=== PATIENT | male | born 1945 | race Native Hawaiian/Other Pacific Islander ===

== ENCOUNTER 2018-03-14 01:00 | Emergency (ER) | payer OTHER ==
[~2018-03-14] VITALS: Ht 172.7 cm; Wt 79.4 kg
[2018-03-14] MEDS ORDERED: LIPITOR40 MG PO (01:09)
[2018-03-14] MEDS ORDERED: RAMI10CA PO (01:09)
[2018-03-14 01:23] LABS: PLATELET COUNT 257 K/uL (142-355)
[2018-03-14 01:30] LABS: POTASSIUM 3.6 mmol/L (3.6-5.2); SODIUM 133 mmol/L (136-145)
[2018-03-14 04:04] VITALS: BP 124/54; TEMP 97.7
== END 2018-03-14 04:08 | disposition home or self-care (01) ==
LOC: ED 01:00
PROVIDERS: Emergency Medicine
DX: R07.89 Other chest pain (principal); R10.84 Generalized abdominal pain; I44.4 Left anterior fascicular block
CPT/HCPCS: 36415; 80053; 82550; 82553; 84484; 85027; 93005; 99283; J2270

== ENCOUNTER 2018-03-19 17:47 | Emergency (ER) | payer OTHER ==
[~2018-03-19] VITALS: Ht 172.7 cm; Wt 79.4 kg
[~2018-03-19 17:47] MED LIST: LIPITOR40 MG PO; RAMI10CA PO
[2018-03-19 20:25] VITALS: BP 129/60; TEMP 102
== END 2018-03-19 20:33 | disposition home or self-care (01) ==
LOC: ED 17:47
DX: K12.2 Cellulitis and abscess of mouth (principal); R50.9 Fever, unspecified; R00.0 Tachycardia, unspecified
CPT/HCPCS: 87651; 93005; 99283

== ENCOUNTER 2018-12-21 12:16 | Outpatient (CLI) | payer OTHER ==
[2018-12-21 12:36] LABS: PLATELET COUNT 211 K/uL (142-355)
[2018-12-21 12:58] LABS: POTASSIUM 4.7 mmol/L (3.6-5.2)
== END 2018-12-21 19:53 | disposition home or self-care (01) ==
LOC: LABW 12:16
PROVIDERS: Physician Assistant
DX: I10 Essential (primary) hypertension (principal); E78.49 Other hyperlipidemia; R41.3 Other amnesia
CPT/HCPCS: 36415; 80053; 80061; 82306; 82607; 84154; 84443; 85027

== ENCOUNTER 2019-01-01 20:57 | Emergency (ER) | payer OTHER ==
[~2019-01-01] VITALS: Ht 172.7 cm; Wt 79.4 kg
[2019-01-01] MEDS ORDERED: ASPIRIN ADULT L81 MG PO (21:21)
[2019-01-01] MEDS ORDERED: B121000 MCG PO (21:22)
[2019-01-01] MEDS ORDERED: D31000 UNIT PO (21:22)
[2019-01-01] MEDS ORDERED: CENTRUM1 TAB PO (21:22)
[2019-01-01 21:53] LABS: PLATELET COUNT 224 K/uL (142-355)
[2019-01-01 22:01] LABS: SODIUM 140 mmol/L (136-145)
[2019-01-02 02:49] VITALS: BP 154/78; TEMP 97.6
== END 2019-01-02 02:50 | disposition home or self-care (01) ==
LOC: ED 20:57
PROVIDERS: Emergency Medicine
DX: R07.89 Other chest pain (principal); R41.82 Altered mental status, unspecified; E86.0 Dehydration; R10.84 Generalized abdominal pain; I44.7 Left bundle-branch block, unspecified; R00.1 Bradycardia, unspecified
CPT/HCPCS: 36415; 80053; 81000; 82150; 82550; 82553; 83690; 84484; 85027; 93005; 96360; 99284; Q9963

== ENCOUNTER 2019-07-23 15:32 | Outpatient (CLI) | payer OTHER ==
[~2019-07-23 15:32] MED LIST changes: +ASPIRIN ADULT L81 MG PO; +B121000 MCG PO; +CENTRUM1 TAB PO; +D31000 UNIT PO
[2019-07-23 16:01] LABS: PLATELET COUNT 222 K/uL (142-355)
[2019-07-23 16:10] LABS: POTASSIUM 4.5 mmol/L (3.6-5.2)
== END 2019-07-23 20:08 | disposition home or self-care (01) ==
LOC: LAB 15:32
PROVIDERS: Internal Medicine
DX: I10 Essential (primary) hypertension (principal); E78.5 Hyperlipidemia, unspecified
CPT/HCPCS: 80053; 80061; 81000; 84439; 84443; 85027

== ENCOUNTER 2019-07-25 10:42 | Outpatient (CLI) | payer OTHER | END 2019-07-25 19:22 | disposition home or self-care (01) | LOC: CT 10:42 → US 10:42 → CT 11:00 | DX: G45.9 Transient cerebral ischemic attack, unspecified (principal) ==

== ENCOUNTER 2019-08-13 14:08 | Outpatient (CLI) | payer OTHER | END 2019-08-13 21:47 | disposition home or self-care (01) | LOC: MRI 14:08 | DX: G45.9 Transient cerebral ischemic attack, unspecified (principal) ==

== ENCOUNTER 2019-11-28 19:52 | Emergency (ER) | payer OTHER ==
[~2019-11-28] VITALS: Ht 172.7 cm; Wt 79.4 kg
[2019-11-28 22:53] VITALS: BP 146/76; TEMP 98.2
== END 2019-11-28 22:53 | disposition home or self-care (01) ==
LOC: ED 19:52
PROC: 0HQGXZZ Repair Left Hand Skin, External Approach (ICD-10-PCS; principal; 2019-11-28)
DX: S61.052A Open bite of left thumb without damage to nail, initial encounter (principal); W54.0XXA Bitten by dog, initial encounter; Y92.89 Other specified places as the place of occurrence of the external cause
CPT/HCPCS: 90471; 90715; 99283

== ENCOUNTER 2019-11-30 12:51 | Emergency (ER) | payer OTHER ==
[~2019-11-30] VITALS: Ht 172.7 cm; Wt 79.4 kg
[2019-11-30 14:09] VITALS: BP 137/60; TEMP 98.9
== END 2019-11-30 14:09 | disposition home or self-care (01) ==
LOC: ED 12:51
DX: Z48.01 Encounter for change or removal of surgical wound dressing (principal)
CPT/HCPCS: 99282

== ENCOUNTER 2019-12-03 16:04 | Outpatient (CLI) | payer OTHER | END 2019-12-03 23:21 | disposition home or self-care (01) | LOC: LAB 16:04 | DX: Z51.89 Encounter for other specified aftercare (principal); W54.0XXD Bitten by dog, subsequent encounter | CPT/HCPCS: 87070; 87077; 87185; 87205 ==

== ENCOUNTER 2020-03-22 19:12 | Emergency (ER) | payer OTHER ==
[~2020-03-22] VITALS: Ht 172.7 cm; Wt 79.4 kg
[2020-03-22 20:30] VITALS: BP 151/70; TEMP 99.2
== END 2020-03-22 20:30 | disposition home or self-care (01) ==
LOC: ED 19:12
DX: L03.211 Cellulitis of face (principal)
CPT/HCPCS: 96372; 99283; J0696

== ENCOUNTER 2021-10-11 17:31 | Emergency (ER) | payer OTHER ==
[~2021-10-11] VITALS: Ht 172.7 cm; Wt 79.4 kg
[2021-10-11 17:35] VITALS: BP 151/70; TEMP 100.1
[2021-10-11 18:01] LABS: PLATELET COUNT 161 K/uL (142-355)
[2021-10-11 18:14] LABS: POTASSIUM 3.9 mmol/L (3.6-5.2)
== END 2021-10-11 20:00 | disposition home or self-care (01) ==
LOC: ED 17:31
PROVIDERS: Emergency Medicine
DX: U07.1 COVID-19 (principal); F03.90 Unspecified dementia, unspecified severity, without behavioral disturbance, psychotic disturbance, mood disturbance, and anxiety
CPT/HCPCS: 80053; 81002; 82550; 83880; 84484; 85027; 93005; 99283